=== PATIENT | male | born 1945 | race Caucasian/White ===

== ENCOUNTER 2022-03-28 14:43 | Inpatient (IN) ==
--- NOTE | 2022-03-28 14:55 | Emergency Department Note ---
Impression & Plan COVID-19, Elevated troponin, Elevated serum creatinine ADMIT ED Provider Note HPI: The patient is a 76-year-old male with history of type 2 diabetes, hypertension, who presents emergency department chief complaint of altered mental status. Patient's daughter is at the bedside and serving with additional history. Patient reportedly over the past several days has had some confusion. He has been seeing things on the TV when the TV was off, he is also been playing Seevibes with himself without any cards. On arrival here to the ED the patient does not have any focal deficits. He is a limited historian and does display some mild confusion but he is alert to place and self, he is unable to tell me the year. He is aware that he is in hospital in [place], [place]. On arrival here to the ED he is noted to be hypertensive with a blood pressure of 254/108, he is not tachycardic, he denies any shortness of breath, states he has had a cough since Saturday. Patient's daughter states that the patient has been undergoing some stress recently over the of a family member about 2 weeks ago. ROS: -Neuro: Altered mental status -General: HTN -Pulm: cough *10 point review systems was conducted and is otherwise negative unless stated above *Outpatient medications and allergy history reviewed PE: General: Alert, NAD HEENT: Normocephalic, atraumatic Eyes: Extraocular eye movement is intact, no scleral erythema Pulmonary: Clear to auscultation bilaterally, no wheezing Cardio: Regular rate and rhythm GI: Abdomen is soft, nontender : No suprapubic tenderness MSK: No evidence of trauma or malformation of the extremities, no edema Skin: No evidence of rash Neuro: Alert, no focal deficits, equal bilateral incident response analyst strength, symmetrical facial movements are appreciated, patient ambulates all 4 extremities spontaneously without issue Psychiatric: Cooperative monitor tech: - An order was placed for continuous cardiac monitoring - Patient was noted to be in sinus rhythm with rate of 96 EKG: Rate: 81 Rhythm: Sinus rhythm Intervals: SC interval prolonged at 238 ms, QRS 154 ms, QTC [address] changes: No ST elevation Time: 1534 Medical Decision Making: Patient presented to the emergency department with a chief complaint of altered mental status, he presents with his daughter who served as further historian. Patient has had some confusion recently, he has been exhibiting some abnormal behavior including seeing things on the TV that were not present, he is also been playing solitaire on his lap without any cards. On arrival patient is noted to be hypertensive at 254/108, he is not tachycardic, he is saturating well on room air. IV was established, lab work obtained, patient was placed on playground monitor, he was given a dose of IV labetalol for his hypertension. CT imaging of the head was ordered. Lab work shows evidence of possible acute kidney injury with creatinine of 2.47, this is in comparison to lab work from last January that showed a creatinine of 2.0, in addition patient has an elevated high-sensitivity troponin level at 51. EKG does not show any acute ischemic changes. CT imaging of the head was obtained that does not show any evidence of an acute intracranial abnormality. COVID-19 testing was obtained and is positive. I suspect this is the source of the patient's altered mentation. He is aware of his surroundings, he is able to tell me his name and birthday, he is unaware of the year, he is having some mild hallucinations about computer games being on the wall. I do feel given his evidence of possible endorgan damage with acute kidney injury and elevated troponin in addition to his encephalopathy that he would benefit from admission. Case was discussed with the on-call provider for the [facility] service and the patient was admitted in stable condition for further management of hypertension, COVID-19 encephalopathy, acute kidney injury, elevated troponin. On my reassessment I discussed the above findings with the patient and his daughter, patient is able to answer most of my questions appropriately but still does have some hallucinations and mild confusion. Critical care time: 40 minutes -Stabilization of hypertensive emergency with encephalopathy, evidence of end organ damage with elevated creatinine and elevated troponin, blood pressure 254/108 requiring IV antihypertensive medications for stabilization, time spent at the bedside, interpretation of diagnostic studies, discussion with other healthcare providers and arrangement of admission Diagnosis: 1. Hypertensive emergency 2. Elevated creatinine 3. Elevated high-sensitivity troponin 4. COVID-19 infection 5. Hallucinations 6. Altered mental status/confusion Disposition: Admission Nathaniel Mccabe DO Emergency Medicine Past Med/Surg History Medical History (Updated 03/28/22 @ 16:56 by Nathaniel Mccabe DO) Age-related nuclear cataract, right eye Body mass index (BMI) of 35.0 to 35.9 Chronic kidney disease, stage III (moderate) Essential (primary) hypertension Other obesity due to excess calories Other specified arthritis, multiple sites Other specified arthritis, unspecified knee Pure hypercholesterolemia Type 2 diabetes mellitus without complication Vitamin D deficiency, unspecified Social History Smoking Status: Never smoker Feels Safe at Home: Yes Allergies Allergies Allergy/AdvReac Type Severity Reaction Status Date / Time acetaminophen [From Vicodin] Allergy Unknown Verified 03/28/22 15:58 hydrocodone [From Vicodin] Allergy Unknown Verified 03/28/22 15:58 Penicillins Allergy Unknown Verified 03/28/22 15:58 adrenal corticosterioids Allergy Unknown Rash Uncoded 03/28/22 15:58 bee stings Allergy Unknown Hives Uncoded 03/28/22 15:58 Home Meds Home Medications Medication Instructions Recorded Confirmed amlodipine 2.5 mg tablet 2.5 mg PO DAILY 02/09/21 03/28/22 atorvastatin 80 mg tablet 80 mg PO DAILY 02/09/21 03/28/22 epinephrine 0.3 mg/0.3 mL 0.3 mg IM Q10M PRN 02/09/21 03/28/22 injection, auto-injector (EpiPen) glipizide 10 mg tablet 10 mg PO BID 02/09/21 03/28/22 lisinopril 20 mg tablet 20 mg PO BID 02/09/21 03/28/22 tramadol 50 mg tablet 100 mg PO Q6H PRN tab 02/09/21 03/28/22 acetaminophen 325 mg capsule 325 mg PO QID PRN 02/23/21 03/28/22 metoprolol tartrate 50 mg tablet 50 mg PO Q12H tab 02/23/21 03/28/22 Results & Data (ED) Vital Signs Vital Signs - 24 hr 03/28/22 14:45 03/28/22 15:34 Temperature 36.7 C Temperature Source Temporal Artery Scan Pulse Rate 94 H Respiratory Rate 20 20 Respiratory Effort / Characteristics Non-Labored Spontaneous Non-Labored Respiratory Depth Normal Normal Respiratory Pattern Regular Blood Pressure 254/108 H Blood Pressure Mean 156 Pulse Oximetry 97 98 Oxygen Delivery Method Room Air Room Air Sepsis Recent Fever Within 48 Hours No Sepsis New/Unexplained Change in Mental Status No Sepsis Action Taken by Nursing No Action Required Laboratory Data Result diagrams: 03/28/22 15:05 03/28/22 15:05 Lab Results 0603/28/22 03/28/22 Range/Units 14:58 15:05 15:05 WBC 6.04 (4.8-10.8) K/uL RBC 4.79 (4.7-6.1) M/uL Hgb 13.7 L (14.0-18.0) g/dL Hct 40.4 L (42-52) % MCV 84.3 (80-100) fL MCH 28.6 (25-34) pg MCHC 33.9 (32-36) g/dL RDW Std Deviation 42.5 (36.4-46.3) fL RDW Coeff of Marnie 14.0 (11.5-14.5) % Plt Count 136 (130-400) K/uL MPV 10.1 (7.4-10.4) fL Immature Gran % (Auto) 0.2 % Neut % (Auto) 77.3 % Lymph % (Auto) 20.0 % [place] % (Auto) 1.7 % Eos % (Auto) 0.5 % Baso % (Auto) 0.3 % Neut # (Auto) 4.67 (1.4-6.5) K/uL Lymph # (Auto) 1.21 (1.2-3.4) K/uL [place] # (Auto) 0.10 L (0.11-0.59) K/uL Eos # (Auto) 0.03 (0-0.5) K/uL Baso # (Auto) 0.02 (0-0.2) K/uL Immature Gran # (Auto) 0.01 (0.00-0.02) K/uL Sodium 135 L (136-145) mmol/L Potassium 4.1 (3.5-5.1) mmol/L Chloride 105 (98-107) mmol/L Carbon Dioxide 22 (21-32) mmol/L Anion Gap 8 (3-11) BUN 27 H (6-23) mg/dl Creatinine 2.47 H (0.6-1.4) mg/dl Est Cr Clr Drug Dosing 33.1 ml/min Est GFR ( Amer) 28.7 ml/min Est GFR (Non-Af Amer) 24.7 ml/min BUN/Creatinine Ratio 10.9 (10-20) Glucose 179 H (70-99(Fasting)) mg/dl POC Glucose 174 H (70-99) mg/dl Calcium 8.8 (8.5-10.1) mg/dl Total Bilirubin 1.2 H (0.2-1.0) mg/dl AST 19 (13-39) U/L ALT 21 (7-52) U/L Alkaline Phosphatase 110 H (34-104) U/L Troponin I High Sens 51.9 H* (0-20) pg/ml Total Protein 6.3 (6.0-8.3) gm/dl Albumin 3.4 (3.4-5.0) gm/dl Globulin 2.9 (2.5-4.0) gm/dl Albumin/Globulin Ratio 1.2 (0.9-2) Lipase 29 (11-82) U/L Anaplasma Smear Babesia Smear Lyme Disease IgG Ab (Negative) Lyme Disease IgM Ab (Negative) SARS-CoV-2 (PCR) (Negative) Influenza Type A (PCR) (Neg) Influenza Type B (PCR) (Neg) RSV (RT-PCR) (Neg) 03/28/22 03/28/22 03/28/22 Range/Units 15:05 15:05 15:35 WBC (4.8-10.8) K/uL RBC (4.7-6.1) M/uL Hgb (14.0-18.0) g/dL Hct (42-52) % MCV (80-100) fL MCH (25-34) pg MCHC (32-36) g/dL RDW Std Deviation (36.4-46.3) fL RDW Coeff of Marnie (11.5-14.5) % Plt Count (130-400) K/uL MPV (7.4-10.4) fL Immature Gran % (Auto) % Neut % (Auto) % Lymph % (Auto) % [place] % (Auto) % Eos % (Auto) % Baso % (Auto) % Neut # (Auto) (1.4-6.5) K/uL Lymph # (Auto) (1.2-3.4) K/uL [place] # (Auto) (0.11-0.59) K/uL Eos # (Auto) (0-0.5) K/uL Baso # (Auto) (0-0.2) K/uL Immature Gran # (Auto) (0.00-0.02) K/uL Sodium (136-145) mmol/L Potassium (3.5-5.1) mmol/L Chloride (98-107) mmol/L Carbon Dioxide (21-32) mmol/L Anion Gap (3-11) BUN (6-23) mg/dl Creatinine (0.6-1.4) mg/dl Est Cr Clr Drug Dosing ml/min Est GFR ( Amer) ml/min Est GFR (Non-Af Amer) ml/min BUN/Creatinine Ratio (10-20) Glucose (70-99(Fasting)) mg/dl POC Glucose (70-99) mg/dl Calcium (8.5-10.1) mg/dl Total Bilirubin (0.2-1.0) mg/dl AST (13-39) U/L ALT (7-52) U/L Alkaline Phosphatase (34-104) U/L Troponin I High Sens (0-20) pg/ml Total Protein (6.0-8.3) gm/dl Albumin (3.4-5.0) gm/dl Globulin (2.5-4.0) gm/dl Albumin/Globulin Ratio (0.9-2) Lipase (11-82) U/L Anaplasma Smear See Comment Babesia Smear See Comment Lyme Disease IgG Ab Negative (Negative) Lyme Disease IgM Ab Negative (Negative) SARS-CoV-2 (PCR) POSITIVE A* (Negative) Influenza Type A (PCR) Negative (Neg) Influenza Type B (PCR) Negative (Neg) RSV (RT-PCR) Negative (Neg) Administered Medications Discontinued Medications Labetalol HCl (Labetalol Hcl Iv 5 Mg/Ml 20ml) 10 mg IV NOW STA Stop: 03/28/22 15:05 Last Admin: 03/28/22 15:43 Dose: 10 mg Documented by: [id number] Cosigned by: [id number] Imaging Data Radiologist's Impression: Chest X-Ray 03/28/22 14:55 XR chest 1V portable HISTORY: Atypical Chest Pain COMPARISON: None. FINDINGS: The cardiac silhouette is mildly enlarged. The lungs are clear. No pleural effusions. No pneumothorax. No evidence for pulmonary edema. Degenerative changes noted within the shoulders. IMPRESSION: Mild cardiomegaly. ACT 112: Negative or not required by law. Electronically signed by: Jasper Smiley M.D. 03/28/2022 3:[address] 03/28/22 16:[address] DOSE: 614.27 mGy.cm HISTORY: Altered mental status. Headache. TECHNIQUE: Multiaxial CT images of the head were performed without the use of intravenous contrast. Automated exposure control was utilized for this study. A dose lowering technique was utilized adhering to the principles of ALARA. Comparison: None. Findings: Trace fluid levels within the maxillary sinuses. Mild mucosal thickening within the ethmoid air cells. The mastoid air cells are clear. The calvarium and skull base are intact. The ventricles and sulci are within normal limits. There is no mass, hematoma, midline shift, or acute infarct. Impression: No acute intracranial abnormality. Mild sinus disease as described above. ACT 112: Negative or not required by law. Electronically signed by: Jasper Smiley M.D. 03/28/2022 4:51 PM Discharge Plan Visit Data Chief Complaint: Cough Stated Complaint: COUGH,CONGESTION ED Provider: Nathaniel Mccabe Discharge Problem: COVID-19, Elevated troponin, Elevated serum creatinine Forms Stand Alone Forms: [facility] [email or web address] Prescriptions Prescriptions: No Action acetaminophen 325 mg capsule 325 mg PO QID PRN (Reason: Pain) RF: 0 amlodipine 2.5 mg tablet 2.5 mg PO DAILY RF: 0 atorvastatin 80 mg tablet 80 mg PO DAILY RF: 0 epinephrine [EpiPen] 0.3 mg/0.3 mL auto-injector 0.3 mg IM Q10M PRN (Reason: Allergic Reaction) RF: 0 glipizide 10 mg tablet 10 mg PO BID RF: 0 lisinopril 20 mg tablet 20 mg PO BID RF: 0 tramadol 50 mg tablet 100 mg PO Q6H PRN (Reason: Pain) RF: 0 metoprolol tartrate 50 mg tablet 50 mg PO Q12H RF: 0 Referrals Referrals: PCP,NO [Physician] -
[2022-03-28] MEDS ORDERED: LABETALOL HCL IV 5 MG/ML 20ML IV STA (15:04)
[2022-03-28 15:30] LABS: Basophils # (auto) 0.02 K/uL (0-0.2); Basophils % (auto) 0.3 %; Eosinophils # (auto) 0.03 K/uL (0-0.5); Eosinophils % (auto) 0.5 %; Hematocrit (blood only) 40.4 % (42-52); Hemoglobin 13.7 g/dL (14.0-18.0); Immature Granulocytes # (auto) 0.01 K/uL (0.00-0.02); Immature Granulocytes % (auto) 0.2 %; Lymphocytes # (auto) 1.21 K/uL (1.2-3.4); Mean Corpuscular Hemoglobin 28.6 pg (25-34); Mean Corpuscular Hgb Conc 33.9 g/dL (32-36); Mean Corpuscular Volume 84.3 fL (80-100); Mean Platelet Volume 10.1 fL (7.4-10.4); Monocytes % (auto) 1.7 %; Neutrophils # (auto) 4.67 K/uL (1.4-6.5); Neutrophils % (auto) 77.3 %; Platelet Count 136 K/uL (130-400); RDW Standard Deviation 42.5 fL (36.4-46.3); Red Blood Count 4.79 M/uL (4.7-6.1); White Blood Count 6.04 K/uL (4.8-10.8)
--- NOTE | 2022-03-28 15:59 | XRay Report ---
XR chest 1V portable HISTORY: Atypical Chest Pain COMPARISON: None. FINDINGS: The cardiac silhouette is mildly enlarged. The lungs are clear. No pleural effusions. No pn eumothorax. No evidence for pulmonary edema. Degenerative changes noted within the shoulders. IMPRESSION: Mild cardiomegaly. ACT 112: Negative or not required by law. Electronically signed by: Jasper Smiley M.D. 03/28/2022 3:58 PM
[2022-03-28 16:14] LABS: Albumin Globulin Ratio 1.2 (0.9-2); Albumin Level 3.4 gm/dl (3.4-5.0); BUN Creatinine Ratio 10.9 (10-20); Bilirubin,Total 1.2 mg/dl (0.2-1.0); Calcium 8.8 mg/dl (8.5-10.1); Creatinine Clr Calc Pharmacy 33.1 ml/min; Est GFR (African American) 28.7 ml/min; Est GFR (Non-African American) 24.7 ml/min; Globulin 2.9 gm/dl (2.5-4.0); Potassium 4.1 mmol/L (3.5-5.1); Total Protein 6.3 gm/dl (6.0-8.3)
[2022-03-28 16:25] LABS: Troponin I High Sensitivity 51.9 pg/ml (0-20)
[2022-03-28 16:30] LABS: Influenza A virus by PCR Negative (Neg); Influenza B virus by PCR Negative (Neg); RSV by PCR Negative (Neg)
[2022-03-28 16:33] LABS: SARS CoV2 RNA(COVID-19) InHosp POSITIVE (Negative)
--- NOTE | 2022-03-28 16:52 | CT Scan Report ---
HEAD CT NONCONTRAST CT DOSE: 614.27 mGy.cm HISTORY: Altered mental status. Headache. TECHNIQUE: Multiaxial CT images of the head were performed without the use of intravenous contrast. A utomated exposure control was utilized for this study. A dose lowering technique was utilized adheri ng to the principles of ALARA. Comparison: None. Findings: Trace fluid levels within the maxillary sinuses. Mild mucosal thickening within the ethmoid air cells. The mastoid air cells are clear. The calvarium and skull base are intact. The ventricles and sulci are within normal limits. There is no mass, hematoma, midline shift, or acute infarct. Impression: No acute intracranial abnormality. Mild sinus disease as described above. ACT 112: Negative or not required by law. Electronically signed by: Jasper Smiley M.D. 03/28/2022 4:51 PM
[2022-03-28 17:20] LABS: Lyme Ab IgG w/WB Rflx Negative (Negative); Lyme Ab IgM w/WB Rflx Negative (Negative)
--- NOTE | 2022-03-28 17:30 | History & Physical Report ---
Date of Service March 28, 2022 Assessment & Plan (1) Hypertensive crisis: (2) Hallucination: (3) COVID-19: (4) Elevated troponin: (5) Elevated serum creatinine: (6) Uncontrolled type 2 diabetes mellitus with hyperglycemia: (7) Chronic kidney disease, stage III (moderate): Plan: Hypertensive crisis- BP 254/108 on arrival, improved with labetalol, 180s/100s throughout my encounter. Home meds include norvasc, metoprolol and lisinopril which he took today - Will continue norvasc (increased dose), continue coreg, hold lisinopril with elevated Cr. Will add hydralazine q8hr and have iv labetalol prn with hold parameters. His BP at home is usually in 150s and that is the goal correction. Hallucinations- ?unclear etiology ?from COVID or hypertensive crisis. COVID 19 positive, lyme negative, flu/RSV negative, CT head with no acute abnormality, CXR with no pneumonia or infiltrates. Ammonia level normal, WBC normal, trop mildly elevated at 51.9. No definite evidence of infection other than COVID. Monitor symptoms. If does not improve, consider MRI brain or neuro eval. Hold tramadol or psychotropics. UDS pending COVID 19 positive- conservative management. Currently no indication for steroids or remdesevir as no hypoxia or PNA. Monitor- if gets hypoxic, consider them although might be limited by his CKD. Elevated trop- likely in setting of CKD. No CP or acute EKG changes. Trend for completeness. Monitor on tele. Uncontrolled DM-2 with CKD- Prior A1c 9.6. on glipizide at home. Hold. Will start on lantus, SSI- lower dose given his CKD. Recheck A1c. ALONSO on CKD3 vs CKD progression- Cr 2.47, prior was 2 but over a year ago. Unknown baseline. [facility]. Will give gentle fluids and recheck in am. Hold lisinopril and other nephrotoxics. DVT ppx- sc heparin Dispo- PCU on tele DNR/DNI- confirmed at bedside, daughter present Updated daughter at bedside History of Present Illness Chief Complaint: Confusion/Hallucination Primary Care Provider: Francisco J Hernandez 76 year old male with h/o DM, HTN, CKD who presented to the ED from home with confusion/hallucination since yesterday. Patient was in his usual health until Saturday when he got sick with cough. He had gone fishing with a friend that day and got dry cough since. It is actually little better today. Denies fever, chills, chest pain, shortness of breath, nausea, vomiting. He is AAOx2 (except for date) and answering questions appropriately. Daughter at bedside corroborating history. Since yesterday, he has been having hallucinations where he is sees the card games everywhere. He was playing soltaire even when the screen was off. He states he even sees the card games wherever he looks but knows that this is not real. He at baseline does play that card game regularly at home. He denies any prior hallucinations. Denies any focal neurological deficits. No diplopia, dysarthria, facial droop, slurred speech, numbness, weakness or tingling. He states he is hungry and has not eaten all day. In the ED, he was hypertensive with BP 254/108 but no tachycardia, RR normal, saturation normal in room air. He was given iv labetalol x1 with improvement in his BP and stayed in 180s/100s during my encounter. States he took all his 3 BP meds today and his BP at home is stable in 150s. Takes glipizide but does not remember other diabetes medications. Does not remember his baseline Cr- he gets his labs through [place]. Allergies Allergy/AdvReac Type Severity Reaction Status Date / Time acetaminophen [From Vicodin] Allergy Unknown Verified 03/28/22 15:58 hydrocodone [From Vicodin] Allergy Unknown Verified 03/28/22 15:58 Penicillins Allergy Unknown Verified 03/28/22 15:58 adrenal corticosterioids Allergy Unknown Rash Uncoded 03/28/22 15:58 bee stings Allergy Unknown Hives Uncoded 03/28/22 15:58 Home Medications Medication Instructions Recorded Confirmed Type amlodipine 2.5 mg tablet 2.5 mg PO DAILY 02/09/21 03/28/22 History atorvastatin 80 mg tablet 80 mg PO DAILY 02/09/21 03/28/22 History epinephrine 0.3 mg/0.3 mL 0.3 mg IM Q10M PRN 02/09/21 03/28/22 History injection, auto-injector (EpiPen) glipizide 10 mg tablet 10 mg PO BID 02/09/21 03/28/22 History lisinopril 20 mg tablet 20 mg PO BID 02/09/21 03/28/22 History tramadol 50 mg tablet 100 mg PO Q6H PRN tab 02/09/21 03/28/22 History acetaminophen 325 mg capsule 325 mg PO QID PRN 02/23/21 03/28/22 History metoprolol tartrate 50 mg tablet 50 mg PO Q12H tab 02/23/21 03/28/22 History Past Med/Surg History Medical History (Updated 03/28/22 @ 18:39 by Elie Small MD) Age-related nuclear cataract, right eye Body mass index (BMI) of 35.0 to 35.9 Chronic kidney disease, stage III (moderate) Essential (primary) hypertension Other obesity due to excess calories Other specified arthritis, multiple sites Other specified arthritis, unspecified knee Pure hypercholesterolemia Type 2 diabetes mellitus without complication Vitamin D deficiency, unspecified Social History Smoking Status: Never smoker Feels Safe at Home: Yes Review of Systems Review of Systems: All systems reviewed & are unremarkable except as noted in Subjective Physical Exam Physical Exam: General: Sitting comfortably in chair, not in distress, on room air HEENT: EOMI, ALBARO, MMM Chest: Clear breath sounds bilaterally, no wheezes or crackles CVS: Regular rate and rhythm, normal heart sounds, no murmur Abdomen: Soft, non tender, not distended, normal bowel sounds Neuro: Awake, alert, oriented x2, conversing well, non focal Extremities: Bilateral LE venous stasis changes with mild chronic edema- no definite cellulitic changes Psych: Still hallucinating seeing card games and trying to play Results & Data Results & Data ([facility]) Vital Signs (Past 12 Hours) Vital Signs Temp Pulse Resp BP Pulse Ox 03/28/22 15:34 20 98 03/28/22 14:45 36.7 C 94 H 20 254/108 H 97 Laboratory Results Short CBC 03/28/22 Range/Units 15:05 WBC 6.04 (4.8-10.8) K/uL Hgb 13.7 L (14.0-18.0) g/dL Hct 40.4 L (42-52) % Plt Count 136 (130-400) K/uL BMP 03/28/22 15:05 Sodium 135 L Potassium 4.1 Chloride 105 Carbon Dioxide 22 BUN 27 H Creatinine 2.47 H Glucose 179 H Calcium 8.8 Liver Function 03/28/22 Range/Units 15:05 Total Bilirubin 1.2 H (0.2-1.0) mg/dl AST 19 (13-39) U/L ALT 21 (7-52) U/L Alkaline Phosphatase 110 H (34-104) U/L Albumin 3.4 (3.4-5.0) gm/dl Diagnostic Findings Chest X-Ray 03/28/22 14:55 XR chest 1V portable HISTORY: Atypical Chest Pain COMPARISON: None. FINDINGS: The cardiac silhouette is mildly enlarged. The lungs are clear. No pleural effusions. No pneumothorax. No evidence for pulmonary edema. Degenerative changes noted within the shoulders. IMPRESSION: Mild cardiomegaly. ACT 112: Negative or not required by law. Electronically signed by: Jasper Smiley M.D. 03/28/2022 3:[address] 03/28/22 16:[address] DOSE: 614.27 mGy.cm HISTORY: Altered mental status. Headache. TECHNIQUE: Multiaxial CT images of the head were performed without the use of intravenous contrast. Automated exposure control was utilized for this study. A dose lowering technique was utilized adhering to the principles of ALARA. Comparison: None. Findings: Trace fluid levels within the maxillary sinuses. Mild mucosal thickening within the ethmoid air cells. The mastoid air cells are clear. The calvarium and skull base are intact. The ventricles and sulci are within normal limits. There is no mass, hematoma, midline shift, or acute infarct. Impression: No acute intracranial abnormality. Mild sinus disease as described above. ACT 112: Negative or not required by law. Electronically signed by: Jasper Smiley M.D. 03/28/2022 4:51 PM
[2022-03-28] MEDS ORDERED: guaiFENesin/DEXTROM SYRUP 200MG/20MG 10ML UDC PO PRN (20:19)
[2022-03-28] MEDS ORDERED: CARBOHYDRATES FOR HYPOGLYCEMIA PO PRN (20:19)
[2022-03-28] MEDS ORDERED: GLUCOSE 40% GEL 15 GM TUBE PO PRN (20:19)
[2022-03-28] MEDS ORDERED: LABETALOL HCL IV 5 MG/ML 20ML IV PRN (20:19)
[2022-03-28] MEDS ORDERED: GLUCAGON FOR INJ 1 MG VIAL SQ PRN (20:19)
[2022-03-28] MEDS ORDERED: GLUCOSE 10 TABS/TUBE PO PRN (20:19)
[2022-03-28] MEDS ORDERED: DEXTROSE 50% 50 ML SYRINGE IV PRN (20:19)
[2022-03-28] MEDS: SODIUM CHLORIDE 0.9% 1000ML 1,000 ML IV SCH (21:05)
[2022-03-28] MEDS: HEPARIN SOD 5,000 UNIT/0.5 ML VIAL SQ SCH (22:28)
[2022-03-28] MEDS: METOPROLOL TARTRATE 50 MG TAB PO SCH (22:29)
[2022-03-28] MEDS: hydrALAZINE TAB 50 MG TAB PO SCH (22:29)
[2022-03-28] MEDS: ACETAMINOPHEN 325 MG TAB PO PRN (22:30)
[2022-03-28 22:31] LABS: Appearance Urine Clear (Clear); Bacteria Urine Automated Negative (Negative); Bilirubin Urine Negative (Negative); Blood Urine 2+ (Negative); Color Urine Yellow; Epithelial Cell Urine Auto >30 /lpf (0-5); Glucose Urine UA 1+ (Negative); Ketones Urine Negative (Negative); Leukocyte Esterase Urine Negative (Negative); Nitrite Urine Negative (Negative); Protein Urine 4+ (Negative); RBC Urine Automated 0-4 /hpf (0-4); Specific Gravity Urine 1.019 (1.000-1.030); Urobilinogen Urine Negative (Negative); pH Urine 6.5 (4.5-7.5)
[2022-03-28] MEDS ORDERED: COUGH DROP (SUGAR FREE) LOZ 24 LOZ/1 BOX BUCCAL ONE (22:41)
[2022-03-28] MEDS: INSULIN ASPART PER UNIT SC SCH (22:42)
[2022-03-28] MEDS: INSULIN GLARGINE SOLOSTAR 100 UNITS/ML 3 ML PEN SC SCH (22:43)
[2022-03-28 23:00] LABS: Amphetamines+Metham, Urine Neg (Neg); Barbiturates, Urine Neg (Neg); Benzodiazepine, Urine Neg (Neg); Cocaine, Urine Neg (Neg); MDMA (Ecstacy), Urine Neg (Neg); Methadone, Urine Neg (Neg); Opiate, Urine Neg (Neg); Phencyclidine, Urine Neg (Neg)
[2022-03-29 02:37] LABS: Hematocrit (blood only) 37.7 % (42-52); Hemoglobin 12.9 g/dL (14.0-18.0); Mean Corpuscular Hemoglobin 29.4 pg (25-34); Mean Corpuscular Hgb Conc 34.2 g/dL (32-36); Mean Corpuscular Volume 85.9 fL (80-100); Mean Platelet Volume 9.9 fL (7.4-10.4); Platelet Count 129 K/uL (130-400); RDW Coefficient of Variation 13.8 % (11.5-14.5); RDW Standard Deviation 43.4 fL (36.4-46.3); Red Blood Count 4.39 M/uL (4.7-6.1); White Blood Count 6.49 K/uL (4.8-10.8)
[2022-03-29 02:59] LABS: Potassium 3.9 mmol/L (3.5-5.1)
[2022-03-29 03:00] LABS: Albumin Globulin Ratio 1.2 (0.9-2); Albumin Level 3.1 gm/dl (3.4-5.0); BUN Creatinine Ratio 11.1 (10-20); Calcium 8.2 mg/dl (8.5-10.1); Creatinine Clr Calc Pharmacy 32.4 ml/min; Est GFR (Non-African American) 24.1 ml/min; Globulin 2.6 gm/dl (2.5-4.0); Total Protein 5.7 gm/dl (6.0-8.3)
[2022-03-29] MEDS: hydrALAZINE TAB 50 MG TAB PO SCH ×3 (06:28→21:25)
[2022-03-29 07:06] LABS: Estimated Average Glucose 183 mg/dl
[2022-03-29] MEDS: INSULIN ASPART PER UNIT SC SCH ×4 (08:00→21:00)
[2022-03-29] MEDS: amLODIPine BESYLATE 5 MG TAB PO SCH (08:15)
[2022-03-29] MEDS: METOPROLOL TARTRATE 50 MG TAB PO SCH ×2 (08:15→21:25)
[2022-03-29] MEDS: HEPARIN SOD 5,000 UNIT/0.5 ML VIAL SQ SCH ×2 (08:16→21:23)
[2022-03-29] MEDS: ATORVASTATIN 40 MG TAB PO SCH (08:16)
[2022-03-29] MEDS: INSULIN GLARGINE SOLOSTAR 100 UNITS/ML 3 ML PEN SC SCH ×2 (08:57→21:39)
[2022-03-29] MEDS: SODIUM CHLORIDE 0.9% 1000ML 1,000 ML IV SCH (10:05)
--- NOTE | 2022-03-29 16:03 | Electrocardiogram Report ---
Test Reason : Blood Pressure : / mmHG Vent. Rate : 081 BPM Atrial Rate : 081 BPM P-R Int : 238 ms QRS Dur : 154 ms QT Int : 412 ms P-R-T Axes : 051 -71 044 degrees QTc Int : 478 ms Sinus rhythm with sinus arrhythmia with 1st degree A-V block Right bundle branch block Left anterior fascicular block Moderate voltage criteria for LVH, may be normal variant Abnormal ECG No previous ECGs available Confirmed by Roger Chappell ([id number]) on 03/29/2022 4:02:54 PM Referred By: REFERRED SELF Confirmed By:Roger Chappell
[2022-03-29 18:18] LABS: BUN Creatinine Ratio 12.8 (10-20); Calcium 8.1 mg/dl (8.5-10.1); Creatinine Clr Calc Pharmacy 32.7 ml/min; Est GFR (African American) 28.3 ml/min; Est GFR (Non-African American) 24.4 ml/min; Potassium 3.9 mmol/L (3.5-5.1)
--- NOTE | 2022-03-29 18:40 | Hospitalist Progress Note ---
Date of Service March 29, 2022 Assessment & Plan (1) Hypertensive crisis: (2) Hallucination: (3) COVID-19: (4) Elevated troponin: (5) Elevated serum creatinine: (6) Uncontrolled type 2 diabetes mellitus with hyperglycemia: (7) Chronic kidney disease, stage III (moderate): Plan: #. 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 Admitting ammonia level normal, WBC normal. Hold tramadol or psychotropics. UDS negative Hallucinations- ?unclear etiology ?from COVID or hypertensive crisis. Treatment of hypertension and monitoring for COVID. Resolved. #. Hypertensive crisis- BP 254/108 on arrival, improved with labetalol. Labetalol as needed. Home meds include norvasc, metoprolol and lisinopril. -Continue with norvasc (increased dose), continue metoprolol, hold lisinopril with elevated Cr. Continue with new added hydralazine q8hr. BP fluctuating, still higher side. Uptitrate medications as needed. - His BP at home is usually in 150s. #. 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 Stable respiratory jennings. Not vaccinated against COVID. Does not want to be vaccinated. Currently no indication for steroids or remdesevir as no hypoxia or PNA. Monitor- if gets hypoxic, consider them although might be limited by his CKD. Elevated trop- likely in setting of CKD. No CP or acute EKG changes. Trend for completeness was flat. Monitor on tele. Uncontrolled DM-2 with CKD- Prior A1c 9.6. on glipizide at home. Hold. On lantus, SSI- lower dose given his CKD. Recheck A1c --> 8.0. ALONSO on CKD3 vs CKD progression- Cr 2.47, prior was 2 but over a year ago. Unknown baseline. [facility] c/w gentle fluids and recheck in am. Hold lisinopril and other nephrotoxics. DVT ppx- sc heparin Dispo- PCU on tele DNR/DNI Admission and Anticipated Discharge Date Admission Date: March 28, 2022 Subjective Patient seen and examined at bedside as a follow-up of hypertensive crisis, hallucination, COVID-19 infection. Patient was sitting up in bed, NAD, on room air, no new acute events overnight. Patient was alert and oriented x3, feeling better, no respiratory distress. Patient denies any headache/dizziness/chest pain/palpitation/other review of symptoms. Physical Exam Physical Exam: GENERAL: Alert and oriented x3. NAD, on RA. Obese. HEENT: No pallor, no icterus. Pupils equal, round and reactive to light. Oral mucosa moist. NECK: No JVD, no neck masses. HEART: S1 and S2 heard. Regular rate and rhythm. No murmur, no gallop. RESPIRATORY SYSTEM: Normal AP diameter. No accessory muscle use. No wheezing, no crackles. ABDOMEN: Soft, bowel sounds present, nontender, no distention. CENTRAL NERVOUS SYSTEM: No facial droop. Speech is clear. Obeys simple commands. Moves extremities. EXTREMITIES: No edema, no erythema seen. Results & Data Results & Data ([facility]) Vital Signs (Past 12 Hours) Vital Signs Temp Pulse Pulse Resp BP Pulse Ox 03/29/22 15:32 37.4 C 57 L 18 174/93 H 97 03/29/22 11:40 37.1 C 64 19 187/66 H 96 03/29/22 08:00 37.1 C 62 16 131/72 97 03/29/22 07:19 61
[2022-03-29] MEDS ORDERED: SODIUM CHLORIDE 0.9% 1000ML 1,000 ML IV SCH (19:00)
[2022-03-29] MEDS ORDERED: hydrALAZINE HCL 20 MG/ML VIAL IV ONE (23:14)
[2022-03-29] MEDS: ACETAMINOPHEN 325 MG TAB PO PRN (23:49)
[2022-03-30] MEDS: hydrALAZINE TAB 50 MG TAB PO SCH (06:32)
[2022-03-30 07:04] LABS: Hematocrit (blood only) 36.8 % (42-52); Hemoglobin 12.7 g/dL (14.0-18.0); Mean Corpuscular Hemoglobin 29.5 pg (25-34); Mean Corpuscular Hgb Conc 34.5 g/dL (32-36); Mean Corpuscular Volume 85.4 fL (80-100); Platelet Count 135 K/uL (130-400); RDW Coefficient of Variation 14.1 % (11.5-14.5); RDW Standard Deviation 43.9 fL (36.4-46.3); Red Blood Count 4.31 M/uL (4.7-6.1); White Blood Count 4.74 K/uL (4.8-10.8)
[2022-03-30 07:22] LABS: BUN Creatinine Ratio 13.9 (10-20); Calcium 8.2 mg/dl (8.5-10.1); Est GFR (Non-African American) 25.9 ml/min; Magnesium 1.7 mg/dl (1.7-2.4); Phosphorus 3.1 mg/dl (2.5-4.9); Potassium 3.6 mmol/L (3.5-5.1)
[2022-03-30] MEDS: INSULIN ASPART PER UNIT SC SCH ×2 (08:19→11:45)
[2022-03-30] MEDS: amLODIPine BESYLATE 5 MG TAB PO SCH (09:32)
[2022-03-30] MEDS: ATORVASTATIN 40 MG TAB PO SCH (09:32)
[2022-03-30] MEDS: METOPROLOL TARTRATE 50 MG TAB PO SCH (09:32)
[2022-03-30] MEDS: HEPARIN SOD 5,000 UNIT/0.5 ML VIAL SQ SCH (09:32)
[2022-03-30] MEDS: INSULIN GLARGINE SOLOSTAR 100 UNITS/ML 3 ML PEN SC SCH (09:43)
[2022-03-30] MEDS ORDERED: POTASSIUM CHLORIDE CRTAB 20 MEQ TABCR PO STA (10:50)
--- NOTE | 2022-03-30 11:03 | Discharge Summary ---
Date of Service March 30, 2022 Admission HPI Per Admitting Provider 76 year old male with h/o DM, HTN, CKD who presented to the ED from home with confusion/hallucination since yesterday. Patient was in his usual health until Saturday when he got sick with cough. He had gone fishing with a friend that day and got dry cough since. It is actually little better today. Denies fever, chills, chest pain, shortness of breath, nausea, vomiting. He is AAOx2 (except for date) and answering questions appropriately. Daughter at bedside corroborating history. Since yesterday, he has been having hallucinations where he is sees the card games everywhere. He was playing soltaire even when the screen was off. He states he even sees the card games wherever he looks but knows that this is not real. He at baseline does play that card game regularly at home. He denies any prior hallucinations. Denies any focal neurological deficits. No diplopia, dysarthria, facial droop, slurred speech, numbness, weakness or tingling. He states he is hungry and has not eaten all day. In the ED, he was hypertensive with BP 254/108 but no tachycardia, RR normal, saturation normal in room air. He was given iv labetalol x1 with improvement in his BP and stayed in 180s/100s during my encounter. States he took all his 3 BP meds today and his BP at home is stable in 150s. Takes glipizide but does not remember other diabetes medications. Does not remember his baseline Cr- [facility] Admission Exam Per Admitting Provider General: Sitting comfortably in chair, not in distress, on room air HEENT: EOMI, ALBARO, MMM Chest: Clear breath sounds bilaterally, no wheezes or crackles CVS: Regular rate and rhythm, normal heart sounds, no murmur Abdomen: Soft, non tender, not distended, normal bowel sounds Neuro: Awake, alert, oriented x2, conversing well, non focal Extremities: Bilateral LE venous stasis changes with mild chronic edema- no definite cellulitic changes Psych: Still hallucinating seeing card games and trying to play Principal Diagnosis Hypertensive encephalopathy versus metabolic encephalopathy Hypertensive crisis COVID-19 Discharge Exam GENERAL: Alert and oriented x3. NAD, on RA. Obese. HEENT: No pallor, no icterus. Pupils equal, round and reactive to light. Oral mucosa moist. NECK: No JVD, no neck masses. HEART: S1 and S2 heard. Regular rate and rhythm. No murmur, no gallop. RESPIRATORY SYSTEM: Normal AP diameter. No accessory muscle use. No wheezing, no crackles. ABDOMEN: Soft, bowel sounds present, nontender, no distention. CENTRAL NERVOUS SYSTEM: No facial droop. Speech is clear. Obeys simple commands. Moves extremities. EXTREMITIES: No edema, no erythema seen. Discharge Data Allergies Allergy/AdvReac Type Severity Reaction Status Date / Time hydrocodone [From Vicodin] Allergy Unknown Unknown Verified 03/28/22 21:09 Penicillins Allergy Unknown Unknown Verified 03/28/22 21:09 adrenal corticosterioids Allergy Unknown Rash Uncoded 03/28/22 15:58 bee stings Allergy Unknown Hives Uncoded 03/28/22 15:58 Consultations 03/28/22 17:07 ED Decision to Admit Stat Ordered Studies 03/28/22 16:17 CT head/brain wo con Stat Hospital Course (1) Hypertensive crisis: (2) Hallucination: (3) COVID-19: (4) Elevated troponin: (5) Elevated serum creatinine: (6) Uncontrolled type 2 diabetes mellitus with hyperglycemia: (7) Chronic kidney disease, stage III (moderate): 76 yo M was managed for the following: #. 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 Admitting ammonia level normal, WBC normal. Hold tramadol or psychotropics. UDS negative Hallucinations- ?unclear etiology ?from COVID or hypertensive crisis. Treatment of hypertension and monitoring for COVID. Resolved. #. Hypertensive crisis- BP 254/108 on arrival, improved with labetalol. Labetalol as needed. Home meds include norvasc, metoprolol and lisinopril. -Continue with norvasc (increased dose), continue metoprolol, hold lisinopril with elevated Cr. Continue with new added hydralazine q8hr. BP fluctuating, still higher side. Uptitrate medications as needed. - His BP at home is usually in 150s. -Patient being discharged with increased dose of amlodipine, new medication hydralazine, lisinopril being held for concerns of ALONSO/CKD, patient to get blood work CMP done in a week time and follow-up with PCP in a week time for further discussion on his hypertension medication management. Patient made aware. #. 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 Stable respiratory jennings. Not vaccinated against COVID. Does not want to be vaccinated. Currently no indication for steroids or remdesevir as no hypoxia or PNA. Patient stable since last 2 days. Patient to maintain home isolation for 10 days from 03/28/2022. Patient made aware. Elevated trop- likely in setting of CKD. No CP or acute EKG changes. Trend for completeness was flat. Monitor on tele. Uncontrolled DM-2 with CKD- Prior A1c 9.6. on glipizide at home. Hold. On lantus, SSI- lower dose given his CKD. Recheck A1c --> 8.0. ALONSO on CKD3 vs CKD progression- Cr 2.47, prior was 2 but over a year ago. Unknown baseline. [facility] c/w gentle fluids and recheck in am. Hold lisinopril and other nephrotoxics. DVT ppx- sc heparin Dispo- PCU on tele DNR/DNI Patient being discharged home with following instruction at the point of discharge: Follow-up with your primary care physician within a week time. Get your blood work CMP done in a week time and have the results forwarded to your primary care physician. Your blood pressure was elevated while in hospital, one new medication hydralazine has been added. Your home medication amlodipine has been increased. Since you also had some acute kidney injury on top of her chronic kidney disease, your lisinopril will be held upon discharge. As discussed at the bedside, you will need to follow-up with your repeat lab work and with your primary care physician within a week time for further discussion and initiation of your lisinopril/adjustment of other hypertensive medication changes made during this hospitalization. Maintain adequate fluid intake of 2-3L per day. Take medications as prescribed. Total Time Total Time Spent Total Time Spent (In Minutes): 35 Discharge Plan Discharge Items Patient Disposition: Home - Self-Care Reason For Visit: HALLUCINATION Discharge Diagnosis: Hypertensive encephalopathy versus metabolic encephalopathy Hypertensive crisis COVID-19 Activity: Resume your previous activity Non-emergency contact: Primary Care Provider Call non-emergency contact if: you have any medication questions, your symptoms worsen and your temperature is above 101 Follow-up/Referrals: Francisco J Hernandez MD [Primary Care Provider] - Diet: Heart Healthy Addtl Attending Provider Instructions: Follow-up with your primary care physician within a week time. Get your blood work CMP done in a week time and have the results forwarded to your primary care physician. Your blood pressure was elevated while in hospital, one new medication hydralazine has been added. Your home medication amlodipine has been increased. Since you also had some acute kidney injury on top of her chronic kidney disease, your lisinopril will be held upon discharge. As discussed at the bedside, you will need to follow-up with your repeat lab work and with your primary care physician within a week time for further discussion and initiation of your lisinopril/adjustment of other hypertensive medication changes made during this hospitalization. Maintain adequate fluid intake of 2-3L per day. Take medications as prescribed. Maintain self-isolation at home for COVID 19 infection for 10 days from 03/28/2022. Home Isolation COVID-19 Instructions The following information about Home Isolation is from the CDC Website: https://www.cdc.gov/coronavirus/2019-ncov/hcp/nqtesfde-iudticw-fzbuky.html Stay home except to get medical care People who are mildly ill with COVID-19 are able to isolate at home during their illness. You should restrict activities outside your home, except for getting medical care. Do not go to work, school, or public areas. Avoid using public transportation, ride-sharing, or taxis. Separate yourself from other people and animals in your home People: As much as possible, you should stay in a specific room and away from other people in your home. Also, you should use a separate bathroom, if available. Animals: You should restrict contact with pets and other animals while you are sick with COVID-19, just like you would around other people. Although there have not been reports of pets or other animals becoming sick with COVID-19, it is still recommended that people sick with COVID-19 limit contact with animals until more information is known about the virus. When possible, have another member of your household care for your animals while you are sick. If you are si ck with COVID-19, avoid contact with your pet, including petting, snuggling, being kissed or licked, and sharing food. If you must care for your pet or be around animals while you are sick, wash your hands before and after you interact with pets and wear a face mask. Call ahead before visiting your doctor If you have a medical appointment, call the healthcare provider and tell them that you have or may have COVID-19. This will help the healthcare providers office take steps to keep other people from getting infected or exposed. Wear a face mask You should wear a face mask when you are around other people (e.g., sharing a room or vehicle) or pets and before you enter a healthcare providers office. If you are not able to wear a face mask (for example, because it causes trouble breathing), then people who live with you should not stay in the same room with you, or they should wear a face mask if they enter your room. Cover your coughs and sneezes Cover your mouth and nose with a tissue when you cough or sneeze. Throw used tissues in a lined trash can. Immediately wash your hands with soap and water for at least 20 seconds or, if soap and water are not available, clean your hands with an alcohol-based hand hospice rn that contains at least 60% alcohol. Clean your hands often Wash your hands often with soap and water for at least 20 seconds, especially after blowing your nose, coughing, or sneezing; going to the bathroom; and before eating or preparing food. If soap and water are not readily available, use an alcohol-based hand hospice rn with at least 60% alcohol, covering all surfaces of your hands and rubbing them together until they feel dry. Soap and water are the best option if hands are visibly dirty. Avoid touching your eyes, nose, and mouth with unwashed hands. Avoid sharing personal household items You should not share dishes, drinking glasses, cups, eating utensils, towels, or bedding with other people or pets in your home. After using these items, they should be washed thoroughly with soap and water. Clean all high-touch surfaces everyday High touch surfaces include counters, tabletops, doorknobs, bathroom fixtures, toilets, phones, keyboards, tablets, and bedside tables. Also, clean any surface s that may have blood, stool, or body fluids on them. Use a household cleaning spray or wipe, according to the label instructions. Labels contain instructions for safe and effective use of the cleaning product including precautions you should take when applying the product, such as wearing gloves and making sure you have good ventilation during use of the product. Monitor your symptoms Seek prompt medical attention if your illness is worsening (e.g., difficulty breathing).Beforeseeking care, call your healthcare provider and tell them that you have, or are being evaluated for, COVID-19. Put on a face mask before you enter the facility. These steps will help the healthcare providers office to keep other people in the office or waiting room from getting infected or exposed. Ask your healthcare provider to call the local or state health department. Persons who are placed under active monitoring or facilitated self- monitoring should follow instructions provided by their local health department or occupational health professionals, as appropriate. When working with your local health department check their available hours. If you have a medical emergency and need to call 911, notify the dispatch personnel that you have, or are being evaluated for COVID-19. If possible, put on a face mask before emergency medical services arrive. Discontinuing home isolation Patients with confirmed COVID-19 should remain under home isolation precautions until the risk of secondary transmission to others is thought to be low. The decision to discontinue home isolation precautions should be made on a [id number] basis, in consultation with healthcare providers and [facility] and local health departments. Pending Studies at Discharge: No Stand-Alone Forms: [facility], Smoking Cessation Medications and DC Order Prescriptions: New amlodipine [Norvasc] 5 mg Tablet 10 mg PO DAILY Qty: 60 RF: 0 hydralazine 50 mg Tablet 50 mg PO Q8 Qty: 90 RF: 0 Continued acetaminophen 325 mg capsule 325 mg PO QID PRN (Reason: Pain) RF: 0 atorvastatin 80 mg tablet 80 mg PO DAILY RF: 0 epinephrine [EpiPen] 0.3 mg/0.3 mL auto-injector 0.3 mg IM Q10M PRN (Reason: Allergic Reaction) RF: 0 glipizide 10 mg tablet 10 mg PO BID RF: 0 tramadol 50 mg tablet 100 mg PO Q6H PRN (Reason: Pain) RF: 0 metoprolol tartrate 50 mg tablet 50 mg PO Q12H RF: 0 Discontinued amlodipine 2.5 mg tablet 2.5 mg PO DAILY RF: 0 lisinopril 20 mg tablet 20 mg PO BID RF: 0 Discharge Orders: Discharge Order (Routine); Ordered 03/30/22 Ordered By: Vimal Gomez/Other Patient Handouts: Managing Type 2 Diabetes Admission Data Admit Date/Time: 03/28/22 18:19 Attending Provider: Vimal Bañuelos Admit Provider: Elie Small Primary Care Provider: Francisco J Hernandez Other Providers: Elie Small
[2022-04-01 15:36] LABS: Babesia microti DNA Not Detected (Not Detected)
== END 2022-03-30 12:49 | disposition home or self-care (01) | DRG 177 ==
LOC: ED 14:43 → 2S 18:19 → SUATTDRO 18:19 → 2S 19:59